=== PATIENT | female | born 1965 | race Two or more races ===

== ENCOUNTER 2020-02-19 17:12 | Inpatient (IN) | payer BC, OTHER ==
[~2020-02-19] VITALS: Ht 157.5 cm; Wt 96.1 kg
[~2020-02-19 17:12] MED LIST: LISI-275 PO; LORA0.5T20 PO; METF-370 PO; SIMV-8 PO; TRAM50TA2 PO
[2020-02-19] MEDS ORDERED: SODIUM CHLORIDE 0.9% 1,000 ML IV ONE (17:36)
[2020-02-19 18:30] LABS: Basophils # (auto) 0.1 10 ^3/uL (0-0.2); Basophils % (auto) 0.8 % (0.0-2.0); Eosinophils # (auto) 0.2 10 ^3/uL (0-0.8); Eosinophils % (auto) 1.8 % (0.0-7.0); Hematocrit 46.1 % (36.0-46.0); Lymphocytes % (auto) 23.2 % (10.0-50.0); Mean Corpuscular Hemoglobin 27.4 pg (28.0-32.0); Mean Corpuscular Hgb Conc. 32.5 g/dL (32.0-36.0); Mean Corpuscular Volume 84.3 fL (80.0-100.0); Monocytes # (auto) 0.6 10 ^3/uL (0-1.3); Monocytes % (auto) 4.9 % (0.0-12.0); Neutrophils # (auto) 8.9 10 ^3/uL (1.6-8.6); Neutrophils % (auto) 69.3 % (37.0-80.0); Nucleated Red Blood Cells % 0.1 %; Platelet Count (auto) 408 10^3/uL (140-450); Red Blood Cells 5.47 10^6/uL (4.0-5.20); Red Cell Distribution Width 14.4 % (11.8-14.3); White Blood Cell 12.9 10^3/uL (4.4-10.8)
[2020-02-19 18:33] LABS: Albumin 3.7 g/dL (3.4-5.0); BUN/Creatinine Ratio 13.6; Calcium 9.7 mg/dL (8.5-10.1); Potassium 3.8 mmol/L (3.5-5.1)
[2020-02-19 18:36] LABS: Bilirubin, Total 0.3 mg/dL (0.2-1.0); Total Protein 8.7 g/dL (6.4-8.2)
[2020-02-19] MEDS ORDERED: DEXTROSE (50%) 50ML SYRG IV PRN (19:00)
[2020-02-19] MEDS ORDERED: MORPHINE SULF INJ 2 MG/ML SYRINGE 1ML IV PRN (19:00)
[2020-02-19] MEDS ORDERED: ACETAMINOPHEN 500 MG TAB PO PRN (19:00)
[2020-02-19] MEDS: SODIUM CHLORIDE 0.9% 1,000 ML IV SCH (19:00)
[2020-02-19] MEDS ORDERED: NITROGLYCERIN 0.4 MG SL TAB SL PRN (19:00)
[2020-02-19] MEDS ORDERED: LACTULOSE 20Gm/30ML SOLN PO PRN (19:00)
[2020-02-19] MEDS ORDERED: PROMETHAZINE HCL 25 MG/ML 1ML IV PRN (19:00)
[2020-02-19 19:26] LABS: Urine Bacteria NONE SEEN /hpf (None Seen); Urine Blood Negative /uL (Negative); Urine Specific Gravity 1.047 (1.001-1.035); Urine WBC 1 /hpf (0 - 5)
[2020-02-19] MEDS: InsuLIN REG 1unit/0.01ml Soln (100units/ml) SC SCH ×2 (20:00→23:51)
[2020-02-19] MEDS: ACCU-CHEK COMFORT CURVE STRIP VI SCH ×2 (20:00→23:48)
[2020-02-19 22:00] VITALS: BP 117/68
[2020-02-19] MEDS: INSULIN LANTUS (GLARGINE) 1 /0.01ml (100units/ml) SC SCH (22:15)
[2020-02-19 22:40] VITALS: BP 122/81
--- NOTE | 2020-02-19 22:59 | NUR ---
PATIENT ARRIVED UNIT AT 2039 ON A WHEELCHAIR. PATIENT WAS CALM ALERT AND WELL ORIENTED. DENIED PAIN. AFEBRLE. ABLE TO AMBULATE.
[2020-02-20] MEDS: traMADol HCL 50 MG TAB PO PRN ×2 (01:19→13:13)
[2020-02-20] MEDS ORDERED: PNEUMOCOCCAL VACC POLYS 25 MCG/0.5 ML VIAL IM ONE (01:45)
[2020-02-20] MEDS: ACCU-CHEK COMFORT CURVE STRIP VI SCH ×4 (03:44→16:23)
[2020-02-20] MEDS: InsuLIN REG 1unit/0.01ml Soln (100units/ml) SC SCH ×4 (03:46→16:00)
[2020-02-20 05:00] VITALS: BP 114/77
[2020-02-20] MEDS: SODIUM CHLORIDE 0.9% 1,000 ML IV SCH ×2 (05:25→15:00)
[2020-02-20 05:34] LABS: Basophils # (auto) 0.1 10 ^3/uL (0-0.2); Eosinophils # (auto) 0.5 10 ^3/uL (0-0.8); Hematocrit 41.7 % (36.0-46.0); Hemoglobin 13.4 g/dL (12.2-16.2); Lymphocytes % (auto) 43.7 % (10.0-50.0); Mean Corpuscular Hemoglobin 27.2 pg (28.0-32.0); Mean Corpuscular Hgb Conc. 32.1 g/dL (32.0-36.0); Mean Corpuscular Volume 84.8 fL (80.0-100.0); Monocytes # (auto) 0.7 10 ^3/uL (0-1.3); Monocytes % (auto) 5.8 % (0.0-12.0); Neutrophils # (auto) 5.2 10 ^3/uL (1.6-8.6); Neutrophils % (auto) 45.5 % (37.0-80.0); Nucleated Red Blood Cells % 0.1 %; Platelet Count (auto) 383 10^3/uL (140-450); Red Blood Cells 4.93 10^6/uL (4.0-5.20); Red Cell Distribution Width 14.4 % (11.8-14.3); White Blood Cell 11.5 10^3/uL (4.4-10.8)
[2020-02-20] MEDS: INSULIN LANTUS (GLARGINE) 1 /0.01ml (100units/ml) SC SCH (06:08)
--- NOTE | 2020-02-20 06:33 | NUR ---
HR 86, RR 14, SPO2 96% ON RA, BS CLEAR. PT OFF CPAP UPON ENTERING ROOM. Respiratory note:
[2020-02-20 09:15] VITALS: BP 117/70
--- NOTE | 2020-02-20 09:40 | NUR ---
Received call from Dr. Manju MOSLEY. New orders received. Will carry out.
[2020-02-20] MEDS ORDERED: metFORMIN HYDROCHLORIDE 500 MG TAB PO ONE (09:45)
[2020-02-20] MEDS ORDERED: GLIP10TA9 PO (09:47)
[2020-02-20] MEDS ORDERED: CHOL20007 OR ×2 (09:47→16:17)
[2020-02-20] MEDS ORDERED: METF-370 PO ×2 (09:47→16:17)
[2020-02-20] MEDS ORDERED: SIMV10TA84 PO ×2 (09:47→16:17)
[2020-02-20] MEDS ORDERED: LISI2.5T47 PO ×2 (09:47→16:17)
[2020-02-20] MEDS ORDERED: BUPR100T14 PO ×2 (09:47→16:17)
[2020-02-20] MEDS ORDERED: FLUO-126 PO ×2 (09:47→16:17)
[2020-02-20] MEDS ORDERED: INSLANTI SC ×2 (09:47→16:17)
[2020-02-20] MEDS ORDERED: TRAM1CAP PO (09:49)
--- NOTE | 2020-02-20 09:50 | NUR ---
Pharmacy/home med rec updated.
[2020-02-20 10:00] LABS: BUN/Creatinine Ratio 23.1; Calcium 8.5 mg/dL (8.5-10.1); Potassium 3.3 mmol/L (3.5-5.1)
[2020-02-20] MEDS ORDERED: ENOXAPARIN SOD 40 MG/0.4 ML SYRINGE SC SCH (10:00)
--- NOTE | 2020-02-20 11:29 | NUR ---
Dietary Consult C[employer] D[employer] AT BED SIDE
[2020-02-20 13:00] VITALS: BP 122/87
--- NOTE | 2020-02-20 13:05 | NUR ---
PAIN PATIENT C/O LEG AND ARM PAIN, BILATERALLY. PATIENT RATES PAIN A 6 ON A SCALE 0-10, AND IS REQUESTING MEDICATION. WILL ADMINISTER PRN PER ORDER.
--- NOTE | 2020-02-20 14:14 | NUR ---
Call out to Dr Arboleda. Call to MD in regards to pending discharge order. Detailed voicemail left through exchange system. Awaiting call back.
[2020-02-20] MEDS ORDERED: POTASSIUM CHL 20 Meq TABLET PO ONE (16:15)
--- NOTE | 2020-02-20 16:22 | NUR ---
Nutrition Assessment Notes Please refer to link for full assessment notes. Est Energy needs: [id number] kcals (14-18 kcal/kgBW) Est Protein needs: 75-100 gms/day (1.5-2.0 gm/kgIBW) Will continue to monitor and reassess prn. Addendum: 02/20/20 at [address] Amended: Links added.
[2020-02-20] MEDS ORDERED: INSULIN LANTUS (GLARGINE) 1 /0.01ml (100units/ml) SC ONE (16:30)
[2020-02-20] MEDS ORDERED: LISINOPRIL 5 MG TAB PO SCH (16:30)
[2020-02-20] MEDS ORDERED: CHOLECALCIFEROL (VITD3) 1,000UNIT=25mCg TAB PO SCH (16:30)
[2020-02-20 16:42] VITALS: BP 134/82
[2020-02-20] MEDS ORDERED: glipiZIDE 5 MG TAB PO SCH (17:15)
[2020-02-20] MEDS ORDERED: metFORMIN HYDROCHLORIDE 500 MG TAB PO SCH (18:00)
--- NOTE | 2020-02-20 18:09 | NUR ---
Discharge instructions given as ordered. Encourage to follow up with PMD as instructed. All questions and concerns addressed. Patient verbalized understanding. Medication reconciliation form completed and copy given to patient, needed vaccines given. IV removed with catheter intact, pressure dressing applied. Patient wheeled down to private vehicle with all personal belongings, accompanied by staff. No distress noted at time of departure. Note: Call to patients pharmacy to verify electronically sent prescriptions. Per pharmacist, all medications are listed and ready for pickup in the AM.
[2020-02-20] MEDS ORDERED: buPROPion HCL 100 MG TAB PO SCH (22:00)
[2020-02-20] MEDS ORDERED: ATORVASTATIN 20 MG TAB PO SCH (22:00)
[2020-02-21] MEDS ORDERED: FLUoxetine HCL 20 MG CAP PO SCH (10:00)
--- NOTE | 2020-02-23 09:24 | NUR ---
Weekend admissions representative-I did not receive a page regarding the social service consult for this patient.
== END 2020-02-20 18:00 | disposition home or self-care (01) | DRG 639 ==
LOC: ER 17:12 → TELE 17:13 → TELE-WESTW 20:35
PROVIDERS: ADMIT Internal Medicine; ATTEND Internal Medicine
DX: E11.65 Type 2 diabetes mellitus with hyperglycemia (principal); E66.01 Morbid (severe) obesity due to excess calories; E78.5 Hyperlipidemia, unspecified; E87.6 Hypokalemia; F32.9 Major depressive disorder, single episode, unspecified; F41.9 Anxiety disorder, unspecified; G43.909 Migraine, unspecified, not intractable, without status migrainosus; I10 Essential (primary) hypertension; Z68.38 Body mass index [BMI] 38.0-38.9, adult; Z80.9 Family history of malignant neoplasm, unspecified; Z82.3 Family history of stroke; Z83.3 Family history of diabetes mellitus; Z87.442 Personal history of urinary calculi; Z91.19 Patient's noncompliance with other medical treatment and regimen; Z23 Encounter for immunization
CPT/HCPCS: 36415; 71045; 80048; 80053; 81001; 82962; 83036; 85025; 94660; G0378; J1815

== ENCOUNTER → 2020-12-14 | Outpatient (CLI) | payer OTHER ==
[~2020-12-14] MED LIST changes: +BUPR100T14 PO; +CHOL20007 OR; +FLUO-126 PO; +GLIP10TA9 PO; +INSLANTI SC; -LISI-275 PO; +LISI2.5T47 PO; -LORA0.5T20 PO; -SIMV-8 PO; +SIMV10TA84 PO; +TRAM1CAP PO; -TRAM50TA2 PO
[2020-12-14 11:09] LABS: Basophils # (auto) 0.1 10 ^3/uL (0-0.2); Basophils % (auto) 1.2 % (0.0-2.0); Eosinophils # (auto) 0.4 10 ^3/uL (0-0.8); Eosinophils % (auto) 4.1 % (0.0-7.0); Hematocrit 41.6 % (36.0-46.0); Hemoglobin 13.9 g/dL (12.2-16.2); Lymphocytes # (auto) 2.8 10 ^3/uL (0.4-5.4); Lymphocytes % (auto) 30.9 % (10.0-50.0); Mean Corpuscular Hemoglobin 28.4 pg (28.0-32.0); Mean Corpuscular Hgb Conc. 33.5 g/dL (32.0-36.0); Mean Corpuscular Volume 84.9 fL (80.0-100.0); Monocytes # (auto) 0.6 10 ^3/uL (0-1.3); Monocytes % (auto) 6.6 % (0.0-12.0); Neutrophils # (auto) 5.1 10 ^3/uL (1.6-8.6); Neutrophils % (auto) 57.2 % (37.0-80.0); Nucleated Red Blood Cells % 0.1 %; Platelet Count (auto) 293 10^3/uL (140-450); Red Cell Distribution Width 14.6 % (11.8-14.3); White Blood Cell 8.9 10^3/uL (4.4-10.8)
[2020-12-14 11:54] LABS: Albumin 3.6 g/dL (3.4-5.0); Calcium 9.2 mg/dL (8.5-10.1); Potassium 3.5 mmol/L (3.5-5.1)
[2020-12-14 11:58] LABS: BUN/Creatinine Ratio 22.2; Bilirubin, Total 0.4 mg/dL (0.2-1.0); Total Protein 8.2 g/dL (6.4-8.2)
== END | disposition home or self-care (01) ==
LOC: LAB 10:49
PROVIDERS: ATTEND Internal Medicine
DX: E11.9 Type 2 diabetes mellitus without complications (principal); F32.9 Major depressive disorder, single episode, unspecified; E78.5 Hyperlipidemia, unspecified; Z12.11 Encounter for screening for malignant neoplasm of colon
CPT/HCPCS: 36415; 80053; 80061; 82043; 83036; 84443; 85025

== ENCOUNTER → 2020-12-29 | Outpatient (CLI) | payer OTHER | END | disposition home or self-care (01) | LOC: LAB 15:39 | PROVIDERS: ATTEND Internal Medicine | DX: Z12.11 Encounter for screening for malignant neoplasm of colon (principal); E11.9 Type 2 diabetes mellitus without complications; E78.5 Hyperlipidemia, unspecified; F32.9 Major depressive disorder, single episode, unspecified | CPT/HCPCS: 82270 ==

== ENCOUNTER 2021-03-08 11:54 | Day surgery (SDC) | payer OTHER ==
[2021-03-03 09:24] LABS: Basophils # (auto) 0.1 10 ^3/uL (0-0.2); Basophils % (auto) 1.4 % (0.0-2.0); Eosinophils # (auto) 0.6 10 ^3/uL (0-0.8); Eosinophils % (auto) 5.8 % (0.0-7.0); Hematocrit 40.3 % (36.0-46.0); Hemoglobin 13.7 g/dL (12.2-16.2); Lymphocytes # (auto) 2.9 10 ^3/uL (0.4-5.4); Lymphocytes % (auto) 29.8 % (10.0-50.0); Mean Corpuscular Hemoglobin 29.3 pg (28.0-32.0); Mean Corpuscular Hgb Conc. 34.1 g/dL (32.0-36.0); Mean Corpuscular Volume 85.8 fL (80.0-100.0); Monocytes # (auto) 0.6 10 ^3/uL (0-1.3); Monocytes % (auto) 6.6 % (0.0-12.0); Neutrophils # (auto) 5.5 10 ^3/uL (1.6-8.6); Neutrophils % (auto) 56.4 % (37.0-80.0); Nucleated Red Blood Cells % 0.1 %; Platelet Count (auto) 320 10^3/uL (140-450); Red Blood Cells 4.69 10^6/uL (4.0-5.20); White Blood Cell 9.8 10^3/uL (4.4-10.8)
[2021-03-03 09:37] LABS: Urine Bacteria FEW /hpf (None Seen); Urine Blood Negative /uL (Negative); Urine Mucus FEW (None Seen); Urine Specific Gravity 1.045 (1.001-1.035); Urine WBC 18 /hpf (0 - 5)
[2021-03-03 09:38] LABS: Partial Thromboplastin Time 26.6 sec (23.0-31.2)
[2021-03-03 09:58] LABS: Albumin 3.5 g/dL (3.4-5.0); Calcium 8.8 mg/dL (8.5-10.1); Potassium 3.6 mmol/L (3.5-5.1)
[2021-03-03 10:03] LABS: BUN/Creatinine Ratio 20.7; Bilirubin, Total 0.3 mg/dL (0.2-1.0); Total Protein 7.9 g/dL (6.4-8.2)
[~2021-03-08] VITALS: Ht 154.9 cm; Wt 103.0 kg
[~2021-03-08 11:54] MED LIST changes: +GLIM4TAB42 PO; -GLIP10TA9 PO; +SIMV-13 PO
[2021-03-08] MEDS ORDERED: InsuLIN REG 1unit/0.01ml Soln (100units/ml) ONE (13:35)
[2021-03-08] MEDS ORDERED: fentaNYL CITRATE 100 MCG/2 ML VL ONE (13:36)
[2021-03-08] MEDS ORDERED: MIDAZOLAM HCL 1MG/1ML-2 ML VIAL ONE (13:43)
[2021-03-08] MEDS ORDERED: PROPOFOL 10 MG/ML 20 ML IV ONE (13:54)
[2021-03-08] MEDS ORDERED: ONDANSETRON HCL 4 MG/2 ML VIAL ONE (14:03)
[2021-03-08] MEDS ORDERED: LIDOCAINE 2% (LOCAL ANESTH.) PF 5ml SDV ONE (14:03)
[2021-03-08] MEDS ORDERED: ONDANSETRON HCL 4 MG/2 ML VIAL IV PRN (14:15)
[2021-03-08 14:35] VITALS: BP 139/89
== END 2021-03-08 14:55 | disposition home or self-care (01) ==
LOC: GI 11:54
PROVIDERS: ATTEND Internal Medicine Gastroenterology
DX: Z12.11 Encounter for screening for malignant neoplasm of colon (principal); D12.4 Benign neoplasm of descending colon; K57.30 Diverticulosis of large intestine without perforation or abscess without bleeding; K64.8 Other hemorrhoids; G47.30 Sleep apnea, unspecified; E11.9 Type 2 diabetes mellitus without complications; F32.9 Major depressive disorder, single episode, unspecified; G47.33 Obstructive sleep apnea (adult) (pediatric); F99 Mental disorder, not otherwise specified; Z20.822 Contact with and (suspected) exposure to COVID-19; Z68.41 Body mass index [BMI] 40.0-44.9, adult; Z90.49 Acquired absence of other specified parts of digestive tract; Z98.890 Other specified postprocedural states; Z79.899 Other long term (current) drug therapy
CPT/HCPCS: 36415; 45385; 80053; 81001; 82962; 85025; 85610; 85730; J1815; J2001; J2250; J2405; J2704; J3010; J7030; U0003

== ENCOUNTER → 2021-09-13 | Outpatient (CLI) | payer OTHER ==
[~2021-09-13] MED LIST changes: +BUPR-160 PO; -BUPR100T14 PO
[2021-09-13 16:41] LABS: Albumin 3.8 g/dL (3.4-5.0); BUN/Creatinine Ratio 19.4; Calcium 9.3 mg/dL (8.5-10.1)
[2021-09-13 16:45] LABS: Bilirubin, Total 0.3 mg/dL (0.2-1.0); Total Protein 7.7 g/dL (6.4-8.2)
== END | disposition home or self-care (01) ==
LOC: LAB 15:29
PROVIDERS: ATTEND Internal Medicine
DX: I10 Essential (primary) hypertension (principal); E78.5 Hyperlipidemia, unspecified
CPT/HCPCS: 36415; 80053; 80061

== ENCOUNTER → 2022-02-19 | Outpatient (CLI) | payer OTHER ==
[2022-02-19 10:53] LABS: Urine Bacteria NONE SEEN /hpf (None Seen); Urine Blood Negative /uL (Negative); Urine Hyaline Cast FEW /lpf (0 - 2); Urine Specific Gravity 1.036 (1.001-1.035); Urine WBC 4 /hpf (0 - 5); Urine WBC Clumps PRESENT /hpf (None Seen)
[2022-02-19 11:09] LABS: Cholesterol 201 mg/dL (< 200); HDL Cholesterol 41 mg/dL (40-59); LDL Cholesterol 117 mg/dL (< 100); Triglycerides 237 mg/dL (< 150)
== END | disposition home or self-care (01) ==
LOC: LAB 10:02
PROVIDERS: ATTEND Internal Medicine
DX: M17.12 Unilateral primary osteoarthritis, left knee (principal); E11.9 Type 2 diabetes mellitus without complications; E66.9 Obesity, unspecified; N96 Recurrent pregnancy loss
CPT/HCPCS: 36415; 80061; 81001; 82043; 82270; 83036

== ENCOUNTER → 2022-04-11 | Outpatient (CLI) | payer OTHER ==
[2022-04-11 08:38] LABS: Alanine Aminotransferase 18 U/L (13-56); Albumin 3.4 g/dL (3.4-5.0); Aspartate Aminotransferase 13 U/L (15-37); Bilirubin, Direct < 0.1 mg/dL (0-0.2)
[2022-04-11 08:40] LABS: Alkaline Phosphatase 73 U/L (45-117); Bilirubin, Total 0.3 mg/dL (0.2-1.0); Total Protein 7.2 g/dL (6.4-8.2); Urine Bacteria NONE SEEN /hpf (None Seen); Urine Blood 3+ /uL (Negative); Urine Mucus FEW (None Seen); Urine Specific Gravity 1.015 (1.001-1.035); Urine WBC 61 /hpf (0 - 5)
== END | disposition home or self-care (01) ==
LOC: LAB 07:54
PROVIDERS: ATTEND Internal Medicine
DX: E78.5 Hyperlipidemia, unspecified (principal); E11.9 Type 2 diabetes mellitus without complications
CPT/HCPCS: 36415; 80076; 81001

== ENCOUNTER → 2022-05-28 | Outpatient (CLI) | payer OTHER ==
[2022-05-28 12:13] LABS: Albumin 3.7 g/dL (3.4-5.0)
[2022-05-28 12:19] LABS: Bilirubin, Direct 0.1 mg/dL (0-0.2); Bilirubin, Total 0.4 mg/dL (0.2-1.0); Total Protein 7.8 g/dL (6.4-8.2)
== END | disposition home or self-care (01) ==
LOC: LAB 10:57
PROVIDERS: ATTEND Internal Medicine
DX: E11.9 Type 2 diabetes mellitus without complications (principal); E78.5 Hyperlipidemia, unspecified
CPT/HCPCS: 36415; 80061; 80076; 83036

== ENCOUNTER → 2022-08-06 | Outpatient (CLI) | payer OTHER ==
[2022-08-06 14:10] LABS: Cholesterol 144 mg/dL (< 200); HDL Cholesterol 44 mg/dL (40-59); LDL Cholesterol 74 mg/dL (< 100); Triglycerides 215 mg/dL (< 150)
== END | disposition home or self-care (01) ==
LOC: LAB 13:15
PROVIDERS: ATTEND Internal Medicine
DX: E11.9 Type 2 diabetes mellitus without complications (principal); E78.5 Hyperlipidemia, unspecified
CPT/HCPCS: 36415; 80061; 83036

== ENCOUNTER → 2022-08-17 | Day surgery (SDC) | payer OTHER ==
[2022-08-16 10:17] LABS: Basophils # (auto) 0.1 10 ^3/uL (0-0.2); Eosinophils # (auto) 0.3 10 ^3/uL (0-0.8); Eosinophils % (auto) 3.3 % (0.0-7.0); Hematocrit 41.4 % (36.0-46.0); Hemoglobin 13.5 g/dL (12.2-16.2); Lymphocytes # (auto) 2.4 10 ^3/uL (0.4-5.4); Lymphocytes % (auto) 27.3 % (10.0-50.0); Mean Corpuscular Hemoglobin 27.2 pg (28.0-32.0); Mean Corpuscular Hgb Conc. 32.5 g/dL (32.0-36.0); Mean Corpuscular Volume 83.9 fL (80.0-100.0); Monocytes # (auto) 0.5 10 ^3/uL (0-1.3); Monocytes % (auto) 6.1 % (0.0-12.0); Neutrophils # (auto) 5.5 10 ^3/uL (1.6-8.6); Neutrophils % (auto) 62.3 % (37.0-80.0); Red Blood Cells 4.94 10^6/uL (4.0-5.20); Red Cell Distribution Width 14.6 % (11.8-14.3); White Blood Cell 8.8 10^3/uL (4.4-10.8)
[2022-08-16 10:23] LABS: Urine Bacteria NONE SEEN /hpf (None Seen); Urine Blood Negative /uL (Negative); Urine Specific Gravity 1.023 (1.001-1.035); Urine WBC 3 /hpf (0 - 5)
[2022-08-16 10:44] LABS: Albumin 3.6 g/dL (3.4-5.0); Calcium 9.2 mg/dL (8.5-10.1); Potassium 3.6 mmol/L (3.5-5.1)
[2022-08-16 10:46] LABS: Bilirubin, Total 0.4 mg/dL (0.2-1.0); Partial Thromboplastin Time 28.8 sec (24.6-33.4); Total Protein 7.6 g/dL (6.4-8.2)
[~2022-08-17] VITALS: Ht 154.9 cm; Wt 100.7 kg
[~2022-08-17] MED LIST changes: +ALPR0.5T7 PO; -BUPR-160 PO; -FLUO-126 PO; +INSREG3 IV; +LIDOCAINE 2% (LOCAL ANESTH.) PF 5ml SDV ONE; -LISI2.5T47 PO; +LISI20TA28 PO; +PROPOFOL 10 MG/ML 20 ML IV ONE; +ROPI0.5T18 PO; -SIMV-13 PO; +SIMV-8 PO; -SIMV10TA84 PO
[2022-08-17 13:20] VITALS: BP 137/84
== END | disposition home or self-care (01) ==
LOC: GI 10:26
PROVIDERS: ATTEND Internal Medicine Gastroenterology
DX: K25.9 Gastric ulcer, unspecified as acute or chronic, without hemorrhage or perforation (principal); R10.13 Epigastric pain; K29.50 Unspecified chronic gastritis without bleeding; K44.9 Diaphragmatic hernia without obstruction or gangrene; G47.30 Sleep apnea, unspecified; E11.9 Type 2 diabetes mellitus without complications; F41.9 Anxiety disorder, unspecified; F32.9 Major depressive disorder, single episode, unspecified; Z98.890 Other specified postprocedural states; Z79.899 Other long term (current) drug therapy; Z79.84 Long term (current) use of oral hypoglycemic drugs; Z90.49 Acquired absence of other specified parts of digestive tract; Z20.822 Contact with and (suspected) exposure to COVID-19
CPT/HCPCS: 36415; 43239; 80053; 81001; 82962; 85025; 85610; 85730; 88305; 88312; 88342; J2001; J2704; J7030; U0003

== ENCOUNTER → 2023-11-25 | Outpatient (CLI) | payer OTHER ==
[~2023-11-25] MED LIST changes: -LIDOCAINE 2% (LOCAL ANESTH.) PF 5ml SDV ONE; -LISI20TA28 PO; +LISI20TA56 PO; -PROPOFOL 10 MG/ML 20 ML IV ONE; -ROPI0.5T18 PO; +ROPI0.5T4 PO; -SIMV-8 PO; +SIMV20TA20 PO
[2023-11-25 14:44] LABS: Chloride 102 mmol/L (98-107); Potassium 3.2 mmol/L (3.5-5.1); Sodium 137 mmol/L (136-145)
[2023-11-25 14:45] LABS: Anion Gap 9 (5-15); Calcium 9.1 mg/dL (8.5-10.1); Carbon Dioxide 26 mmol/L (20-30)
[2023-11-25 14:50] LABS: BUN/Creatinine Ratio 7.7 (10.0-20.0); Blood Urea Nitrogen 5 mg/dL (9-23); Glucose 218 mg/dL (74-106)
[2023-11-25 14:58] LABS: Creatinine, Urine 236.51 mg/dL (30.0-125.0)
== END | disposition home or self-care (01) ==
LOC: LAB 13:58
PROVIDERS: ATTEND Internal Medicine
DX: E11.9 Type 2 diabetes mellitus without complications (principal)
CPT/HCPCS: 36415; 80048; 82043; 82570; 83036

== ENCOUNTER → 2024-05-28 | Outpatient (CLI) | payer OTHER ==
[~2024-05-28] MED LIST changes: +ROPI0.5T26 PO; -ROPI0.5T4 PO
[2024-05-28 15:47] LABS: Alanine Aminotransferase 30 U/L (7-40); Alkaline Phosphatase 99 U/L (46-116); Anion Gap 6 (5-15); BUN/Creatinine Ratio 14.6 (10.0-20.0); Blood Urea Nitrogen 12 mg/dL (9-23); Calcium 9.4 mg/dL (8.7-10.4); Carbon Dioxide 26 mmol/L (20-30); Chloride 103 mmol/L (98-107); Glucose 356 mg/dL (74-106); LDL Cholesterol 131 mg/dL (< 100); Potassium 4.3 mmol/L (3.5-5.1); Sodium 135 mmol/L (136-145); Triglycerides 264 mg/dL (< 150)
[2024-05-28 15:48] LABS: Albumin 4.2 g/dL (3.2-4.8); Aspartate Aminotransferase 16 U/L (13-40); Bilirubin, Total 0.5 mg/dL (0.2-1.0); Cholesterol 223 mg/dL (< 200); HDL Cholesterol 39 mg/dL (40-59); Total Protein 7.3 g/dL (5.7-8.2)
== END | disposition home or self-care (01) ==
LOC: LAB 15:17
PROVIDERS: ATTEND Internal Medicine
DX: E11.9 Type 2 diabetes mellitus without complications (principal); E66.9 Obesity, unspecified; R53.83 Other fatigue
CPT/HCPCS: 36415; 80053; 80061; 83036; 84403; 84443

== ENCOUNTER → 2025-07-19 | Outpatient (CLI) | payer OTHER ==
[2025-07-19 13:44] LABS: Triglycerides 229 mg/dL (< 150)
[2025-07-19 13:46] LABS: Cholesterol 149 mg/dL (< 200)
[2025-07-19 13:48] LABS: HDL Cholesterol 40 mg/dL (40-59)
== END | disposition home or self-care (01) ==
LOC: LAB 12:54
PROVIDERS: ATTEND Internal Medicine
DX: E78.5 Hyperlipidemia, unspecified (principal); E11.9 Type 2 diabetes mellitus without complications
CPT/HCPCS: 36415; 80061; 83036